=== PATIENT | female | born 1940 | race Caucasian/White ===

== ENCOUNTER → 2017-12-19 | Outpatient (CLI) | payer MEDICARE, BC ==
--- NOTE | 2017-12-19 11:51 | RAD ---
CT sinus without contrast History: Chronic sinusitis. Technique: CT of the sinuses was performed without intravenous contrast. Axial, sagittal, and coronal reconstructions were obtained. Exposure: One or more of the following individualized dose reduction techniques were utilized for this examination: 1. Automated exposure control 2. Adjustment of the mA and/or kV according to patient size 3. Use of iterative reconstruction technique Findings: Minimal mucosal thickening involves bilateral inferior frontal sinuses. There is moderate ethmoid mucosal disease and opacification. There is mild mucosal thickening of the sphenoid sinus. Bilateral maxillary sinuses demonstrate moderate-severe mucosal disease. Both ostiomeatal units are opacified by mucosal disease. No mucoperiosteal reaction is identified. IMPRESSION: 1. Pansinus disease, worst in the maxillary sinuses. Electronically signed by: Charly Wheat MD (12/19/2017 11:48 AM) [place] [id number]
== END | disposition home or self-care (01) ==
LOC: CT 07:59
PROVIDERS: ATTEND Nurse Practitioner Adult Health
DX: J32.4 Chronic pansinusitis (principal)
CPT/HCPCS: 70486